=== PATIENT | male | born 1970 | race Caucasian/White ===

== ENCOUNTER → 2022-05-18 13:59 | Outpatient (BNVA) | payer OTHER, SELFPAY | PROVIDERS: Family Provider Family Medicine; Visit Provider Family Medicine | DX: R07.9 Chest pain, unspecified (principal); R06.02 Shortness of breath | CPT/HCPCS: 71046 ==

== ENCOUNTER 2022-05-21 12:56 | Emergency (ER) | payer SELFPAY ==
[2022-05-21] VITALS (8 sets, daily range): BP systolic 129–178; BP diastolic 77–128; PULSE 61–89; RESP 13–18; TEMP 36.6; O2SAT 95–98
--- NOTE | 2022-05-21 13:25 | XRR_ITS ---
PROCEDURE INFORMATION: Exam: XR Chest Exam date and time: 05/21/2022 1:39 PM Age: 51 years old Clinical indication: Pain; Angina pectoris; Additional info: Chest pain TECHNIQUE: Imaging protocol: Radiologic exam of the chest. Views: 1 view. COMPARISON: CR XR chest 2V* [id number] 05/18/2022 2:15 PM FINDINGS: Lungs: Unremarkable. No consolidation. Pleural spaces: Unremarkable. No pleural effusion. No pneumothorax. Heart/Mediastinum: Unremarkable. No cardiomegaly. Bones/joints: Unremarkable. XR/XR chest 1V portable [id number] IMPRESSION: No acute findings.
--- NOTE | 2022-05-21 13:27 | ECG_ITS ---
[facility] Test Date: 2022-05-21 Pat Name: Bebeto Pozo Department: Room: Gender: Male Resident Services Manager: : 1970 Requested By: Krystina Sykes Order Number: [id number] Navarrete MD: Junaid Meredith M.D. Measurements Intervals [place] Rate: 85 P: 10 OR: 144 QRS: 3 QRSD: 91 T: 33 QT: 350 QTc: 418 Interpretive Statements SINUS RHYTHM No previous ECG available for comparison Electronically Signed On 05-22-2022 8:09:14 CDT by Junaid Meredith M.D. [id number]
--- NOTE | 2022-05-21 14:13 | W.ED.GENADLT ---
HPI - General Adult General: Chief complaint: Chest Pain Stated complaint: high BP Time Seen by Provider: 05/21/22 13:25 History of Present Illness: Patient is a 51-year-old male with a history of hypertension who presents the emergency room for concerns of recurrent lightheadedness for the last 3 days. Patient tells me that every time when he lays down he feels lightheaded upon standing up. Patient tells me that he has not had any dehydration, diarrhea, decreased p.o. intake in the last few days. Patient denies any melena or hematochezia. Patient has a family history of cardiac disease with father from heart attack in his 40s. Patient reports that mild chest ache upon standing lasting for a few seconds at a time. However patient denies any squeezing chest pressure, exertional fatigue or chest pressure with exercise or exertion. Patient denies any fever/chills, cough, runny nose sore throat. Patient denies any pleuritic chest pain, nausea/vomiting, diarrhea or complaints. Patient denies any LOC or palpitation the last few days. Onset:3 days ago Duration:3 days Location: home Severity:moderate Associated symptoms: Reports chest pain (+chest pain); Deny dyspnea, nausea, rash, palpitations or vomiting Review of Systems Const: Denies: fever(s) or chills Eyes: Denies: change in vision ENMT: Denies: mouth pain Card: Reports: chest pain (+chest pain); Denies: palpitations Resp: Denies: dyspnea or non-productive cough GI: Denies: abdominal pain, nausea, vomiting or diarrhea : Denies: dysuria Musc: Denies: extremity pain Skin/Breast: Denies: rash or new lesions Neuro: Reports: other (+light-headedness, headache); Denies: weakness in extremities Psych: Reports: other (Normal mood) Omar/Lymph: Denies: easy bruising PFSH ED PFSH: Medical History Hypertension Social History Smoking and tobacco status: former smoker Alcohol intake: never Substance/Drug Use: never Physical Exam Const: COMMON NORMALS: alert HENMT: COMMON NORMALS: atraumatic HEAD & SCALP: atraumatic MOUTH: moist mucous membranes not abnormal Eye: COMMON NORMALS: EOMs intact bilaterally and conjunctivae normal CONJUNCTIVA: Yes conjunctivae normal Neck/C-Spine: COMMON NORMALS: full ROM and supple Resp: COMMON NORMALS: normal respiratory effort and clear to auscultation bilaterally AUSCULTATION: clear to auscultation bilaterally Cardio: COMMON NORMALS: regular rate RATE: regular rate OTHER: 2+ radial pulses b/l GI: COMMON NORMALS: Soft to palpation and non-tender PALPATION: Yes Soft to palpation Extremity: COMMON NORMALS: full ROM Neuro: SENSORIUM/ORIENTATION: Yes alert MOTOR EXAM: No Abnormal motor strength present and Other motor observations present (no focal motor deficits) Psych: COMMON NORMALS: speech normal SPEECH: Yes normal speech MOOD & AFFECT: Yes euthymic mood Course Vital Signs: Vital signs: Vital Signs Temperature 97.8 F 05/21/22 13:18 Pulse Rate 70 05/21/22 19:00 Respiratory Rate 13 05/21/22 16:00 Blood Pressure 133/83 05/21/22 19:00 Pulse Oximetry 96 05/21/22 19:00 MDM - General Adult Medical Decision Making [51]yo patient w/ hx of hypertension presenting to the ED with evaluation of light-headedness x 3 days. HDS, pulse 2+ radially bilaterally, no signs of fluid overload, AAOx3, neuro exam intact. Given History and Exam today I have no suspicion for ACS, Pneumothorax, Pneumonia, Pulmonary Embolus, Tamponade, Aortic Dissection or other emergent problems as a cause for this presentation. Workup: ECG, CXR, CBC, BMP, Troponin Findings: ECG: No overt evidence of STEMI, hyperacute T waves, localizable STD or T wave inversions. No evidence of Brugada?s sign, delta wave, epsilon wave, significantly prolonged QTc, or malignant arrhythmia. No Q waves. Other Labs unremarkable for emergent problems. CXR: Without PTX, PNA, or widened mediastinum Last Stress Test: never Last Heart Catheterization: never On reassessment, the patient is HDS, no complaints of persistent chest pain in the ED after evaluation. ECG is non-ischemic. Troponin within normal limit. Patient is able to ambulate without difficulty. Doubt ACS/PE or other emergent causes of chest pain. No suspicion for aortic dissection given no widened mediastinum, 2+ upper extremity pulses, or tearing pain. No suspicion for PE given no pleuritic chest pain, recent immobilization or surgery hemoptysis, or other VTE risk factors. EKG is non-ischemic. XR normal. Disposition: Discharge. Strict return precautions discussed with the patient with full understanding. Advised patient to follow up promptly with a primary care provider in 24-48 hrs if the patient has persistent symptoms. Given return instructions for any crushing/tearing chest pain, focal weakness, syncope or any new or concerning issues. Lab Data : 05/21/22 15:55 05/21/22 15:55 Radiology Impressions Chest X-Ray 05/21/22 13:25 IMPRESSION: No acute findings. Head CT 05/21/22 14:50 IMPRESSION: There are no acute concerning abnormalities. Laboratory Results WBC 7.2 10^3/uL (4.0-10.0) 05/21/22 15:55 RBC 5.44 10^6/uL (4.1-5.3) H 05/21/22 15:55 Hgb 16.1 g/dL (11.7-16.6) 05/21/22 15:55 Hct 45.7 % (42.0-52.0) 05/21/22 15:55 MCV 84.0 fl (80-94) 05/21/22 15:55 MCH 29.6 pg (28.0-34.0) 05/21/22 15:55 MCHC 35.2 g/dL (30.0-36.0) 05/21/22 15:55 RDW 11.8 % (12.1-15.1) L 05/21/22 15:55 Plt Count 315 10^3/cmm (130-400) 05/21/22 15:55 MPV 10.1 fL (7.4-10.4) 05/21/22 15:55 Neut % (Auto) 66.6 % 05/21/22 15:55 Lymph % (Auto) 22.9 % 05/21/22 15:55 [place] % (Auto) 9.5 % 05/21/22 15:55 Eos % (Auto) 0.3 % 05/21/22 15:55 Baso % (Auto) 0.4 % 05/21/22 15:55 Neut # (Auto) 4.77 10^3/uL (1.8-7.7) 05/21/22 15:55 Lymph # (Auto) 1.6 10^3/uL (0.8-4.8) 05/21/22 15:55 [place] # (Auto) 0.7 10^3/uL (0.2-0.9) 05/21/22 15:55 Eos # (Auto) 0.0 10^3/uL (0.0-0.8) 05/21/22 15:55 Baso # (Auto) 0.0 10^3/uL (0.0-0.1) 05/21/22 15:55 Nucleated RBC % (auto) 0 % 05/21/22 15:55 Nucleated RBCs # 0.0 /100WBC 05/21/22 15:55 Sodium 133 mmol/L (136-145) L 05/21/22 15:55 Potassium 4.2 mmol/L (3.5-5.1) 05/21/22 15:55 Chloride 96 mmol/L (98-107) L 05/21/22 15:55 Carbon Dioxide 25 mmol/L (22-29) 05/21/22 15:55 Anion Gap 16.2 (5-19) 05/21/22 15:55 BUN 15 mg/dL (6-20) 05/21/22 15:55 Creatinine 0.9 mg/dL (0.7-1.2) 05/21/22 15:55 GFR Calculation 88.6 mL/min (90-130) L 05/21/22 15:55 Glucose 88 mg/dL (65-115) 05/21/22 15:55 Calculated Osmolality 276 mOsm/kg (285-295) L 05/21/22 15:55 Calcium 9.2 mg/dL (8.5-10.5) 05/21/22 15:55 Total Bilirubin 1.1 mg/dL (0.15-1.2) 05/21/22 15:55 AST 29 U/L (0-40) 05/21/22 15:55 ALT 47 U/L (0-41) H 05/21/22 15:55 Alkaline Phosphatase 78 IU/L (40-130) 05/21/22 15:55 Troponin T Baseline 6 ng/L (0-15) 05/21/22 15:55 Troponin T 120 Minute 6.53 ng/L (0-15) 05/21/22 18:27 Delta Troponin T 0.53 ABS# (0-10) 05/21/22 18:27 NT-Pro-B Natriuret Pep 7 pg/mL (0-125) 05/21/22 15:55 Total Protein 7.7 g/dL (6.6-8.7) 05/21/22 15:55 Albumin 4.9 g/dL (3.5-5.2) 05/21/22 15:55 Globulin 2.8 g/dL (1.3-4.6) 05/21/22 15:55 Lipase 13 U/L (13-60) 05/21/22 15:55 Imaging Data Other Imaging: Radiologist's impression: [employer] [address] [address] [address] Scan Report Signed Patient: Bebeto Pozo Unit #: [id number] : 1970 Age/Sex: 51 / M ADM Date: 05/21/22 Loc: ER Room/Bed: Attending Dr: Ordering Provider/Ordering MD: Krystina Sykes MD Date of Service: 05/21/22 Procedure(s): CT head wo con* [id number] Accession Number(s): [id number] Report Number: [id number] PROCEDURE INFORMATION: Exam: CT Head Without Contrast Exam date and time: 05/21/2022 3:26 PM Age: 51 years old Clinical indication: Pain; Headache not specified TECHNIQUE: Imaging protocol: Computed tomography of the head without contrast. Radiation optimization: All CT scans at this facility use at least one of these dose optimization techniques: automated exposure control; mA and/or kV adjustment per patient size (includes targeted exams where dose is matched to clinical indication); or iterative reconstruction. COMPARISON: No relevant prior studies available. RADIATION DOSE METRICS: Total DLP (mGy-cm): 1078.2 FINDINGS: Brain: Mild volume loss and white matter disease are identified. There is no acute infarct or edema. No hemorrhage. Cerebral ventricles: No ventriculomegaly. Paranasal sinuses: Visualized sinuses are unremarkable. No fluid levels. Mastoid air cells: Visualized mastoid air cells are well aerated. Bones/joints: Unremarkable. No acute fracture. Soft tissues: Unremarkable. CT/CT head wo con* [id number] IMPRESSION: There are no acute concerning abnormalities. ? Dictated By: Daisy Bang MD Signed By: Daisy Bang MD Signed Date/Time: 05/21/22 1619 DD/ [address] [address] XRay Report Signed Patient: Bebeto Pozo Unit #: [id number] : 1970 Age/Sex: 51 / M ADM Date: 05/21/22 Loc: ER Room/Bed: Attending Dr: Ordering Provider/Ordering MD: Krystina Sykes MD Date of Service: 05/21/22 Procedure(s): XR chest 1V portable [id number] Accession Number(s): [id number] Report Number: [id number] PROCEDURE INFORMATION: Exam: XR Chest Exam date and time: 05/21/2022 1:39 PM Age: 51 years old Clinical indication: Pain; Angina pectoris; Additional info: Chest pain TECHNIQUE: Imaging protocol: Radiologic exam of the chest. Views: 1 view. COMPARISON: CR XR chest 2V* [id number] 05/18/2022 2:15 PM FINDINGS: Lungs: Unremarkable. No consolidation. Pleural spaces: Unremarkable. No pleural effusion. No pneumothorax. Heart/Mediastinum: Unremarkable. No cardiomegaly. Bones/joints: Unremarkable. XR/XR chest 1V portable [id number] IMPRESSION: No acute findings. ? Dictated By: Zaid Dash DO Signed By: Zaid Dash DO Signed Date/Time: 05/21/22 1430 DD/ 1339 Discharge Plan Discharge Patient Disposition: Home Clinical Impression: Hypertension, Chest pain, Headache Condition: Stable Prescriptions: New acetaminophen 500 mg tablet 500 mg PO Q6H PRN (Reason: pain) 5 Days Qty: 20 0RF amlodipine 5 mg tablet 5 mg PO DAILY 30 Days Qty: 30 0RF Discharge Orders: Discharge ED (Routine); Ordered 05/21/22 Ordered By: Krystina Sykes Referrals: Dylan Redd DO [Primary Care Provider] - Discharge Diet: Advance as tolerated Discharge Activity: Increase activity as tolerated Patient Instructions: Hypertension (ED) Activity Restrictions/Additional Instructions: You need to follow-up with your primary care provider for further adjustment of your blood pressure. Your blood pressure puts you at risk for developing strokes and heart attack. Therefore it is very important for you to follow-up with this number to see if the numbers improve gradually. Because blood pressure adjustment is a gradual process, were not able to change it in 1 visit. Therefore please log your blood pressure and follow-up with your primary care provider in the next 72 hours for further adjustment of your blood pressures. Please follow up with a Manufacturing Coordinator in the next few weeks once you move for further evaluation of your heart due to family history. Stand Alone Forms: Work/School Release Coding Level of Care Code ED Hog Driver for Nancie Fwd Exam Comprehensive
--- NOTE | 2022-05-21 14:50 | CTR_ITS ---
PROCEDURE INFORMATION: Exam: CT Head Without Contrast Exam date and time: 05/21/2022 3:26 PM Age: 51 years old Clinical indication: Pain; Headache not specified TECHNIQUE: Imaging protocol: Computed tomography of the head without contrast. Radiation optimization: All CT scans at this facility use at least one of these dose optimization techniques: automated exposure control; mA and/or kV adjustment per patient size (includes targeted exams where dose is matched to clinical indication); or iterative reconstruction. COMPARISON: No relevant prior studies available. RADIATION DOSE METRICS: Total DLP (mGy-cm): 1078.2 FINDINGS: Brain: Mild volume loss and white matter disease are identified. There is no acute infarct or edema. No hemorrhage. Cerebral ventricles: No ventriculomegaly. Paranasal sinuses: Visualized sinuses are unremarkable. No fluid levels. Mastoid air cells: Visualized mastoid air cells are well aerated. Bones/joints: Unremarkable. No acute fracture. Soft tissues: Unremarkable. CT/CT head wo con* [id number] IMPRESSION: There are no acute concerning abnormalities.
--- NOTE | 2022-05-21 15:27 | ECG_ITS ---
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 Measurements Intervals [place] Rate: 61 P: 22 [place]: 179 QRS: 8 QRSD: 98 T: 17 QT: 389 QTc: 392 Interpretive Statements SINUS RHYTHM Compared to ECG 05/21/2022 13:17:08 No significant changes Electronically Signed On 05-22-2022 18:13:51 CDT by Junaid Meredith M.D. [id number]
[2022-05-21 16:10] LABS: Basophils % 0.4 %; Eosinophils % 0.3 %; Hematocrit 45.7 % (42.0-52.0); Hemoglobin 16.1 g/dL (11.7-16.6); Lymphocytes # 1.6 10^3/uL (0.8-4.8); Lymphocytes % 22.9 %; Mean Corpuscular HGB Conc 35.2 g/dL (30.0-36.0); Mean Corpuscular Hemoglobin 29.6 pg (28.0-34.0); Mean Platelet Volume 10.1 fL (7.4-10.4); Monocytes # 0.7 10^3/uL (0.2-0.9); Monocytes % 9.5 %; Neutrophils # 4.77 10^3/uL (1.8-7.7); Neutrophils % 66.6 %; Nucleated Red Blood Cells % 0 %; Platelet Count 315 10^3/cmm (130-400); Red Blood Count 5.44 10^6/uL (4.1-5.3); Red Cell Distribution Width 11.8 % (12.1-15.1); White Blood Count 7.2 10^3/uL (4.0-10.0)
[2022-05-21] MEDS: sodium chloride 0.9% 1,000 ML 999 ML IV (16:17)
[2022-05-21 16:36] LABS: Troponin(5th) Baseline 6 ng/L (0-15)
[2022-05-21 16:43] LABS: Alanine Aminotransferase 47 U/L (0-41); Albumin Level 4.9 g/dL (3.5-5.2); Alkaline Phosphatase 78 IU/L (40-130); Anion Gap 16.2 (5-19); Aspartate Amino Transferase 29 U/L (0-40); Blood Urea Nitrogen 15 mg/dL (6-20); Calcium 9.2 mg/dL (8.5-10.5); Carbon Dioxide 25 mmol/L (22-29); Chloride 96 mmol/L (98-107); Globulin 2.8 g/dL (1.3-4.6); Glomerular Filtration Rate 88.6 mL/min (90-130); Glucose 88 mg/dL (65-115); Lipase 13 U/L (13-60); NT Pro B Type Natriuretic Pept 7 pg/mL (0-125); Osmolality Calculated 276 mOsm/kg (285-295); Potassium 4.2 mmol/L (3.5-5.1); Sodium 133 mmol/L (136-145); Total Bilirubin 1.1 mg/dL (0.15-1.2); Total Protein 7.7 g/dL (6.6-8.7)
[2022-05-21 19:05] LABS: Troponin 5 2HR 6.53 ng/L (0-15)
[2022-05-21 19:12] LABS: Troponin 5 2HR Delta 0.53 ABS# (0-10)
== END 2022-05-21 19:25 | disposition home or self-care (01) ==
PROVIDERS: Emergency Provider Emergency Medicine; PCP Family Medicine
DX: R07.9 Chest pain, unspecified (principal); I10 Essential (primary) hypertension; R51.9 Headache, unspecified; Z87.891 Personal history of nicotine dependence
CPT/HCPCS: 70450; 71045; 80053; 83690; 83880; 84484; 85025; 93005; 99285; J7030